=== PATIENT | female | born 1980 | race Caucasian/White ===

== ENCOUNTER → 2017-01-03 | Outpatient (CLI) | payer OTHER ==
[~2017-01-03] MED LIST: ALBUTEROL17 GM INH; NAPROSYN500 MG PO; NUVARING V1 VAG.RING VG; PRILOSEC20 M1 PO; TYLENOL ALLERGY1 TA1 PO
--- NOTE | ~2017-01-03 | NM22 ---
[facility] A Service of [facility] & [facility] RADIOLOGY TEXT RESULTS PATIENT: OLI TORO LOCATION: [facility] : 76 UNIT #: [id number] AGE: [address]: Jeanne Tobias MD SEX: F ORDER DR: [id number] [facility] [address] [place], [place] [address] [id number] O MR#: [id number] Acc #: [id number] NAME: OLI TORO : 1980 SEX: F STUDY DATE/TIME: 01/03/2017 8:41 UNIT: [facility] ROOM: STUDY DESCRIPTION: SD Hepatobiliary W GB Pharm Attending Physician: Jeanne Tobias M.D. Referring Physician: Jeanne Tobias M.D. Ordering Physician: Jeanne Tobias M.D. Primary Care Physician: Jeanne Tobias M.D. MEDICAL IMAGING REPORT This report is preliminary unless electronic signature is present EXAM HIDA scan with Kinevac CCK, 01/03/2017 HISTORY Right upper quadrant pain and right flank pain and right lower back pain for 2 weeks with nausea, abdominal bloating, alternating constipation and diarrhea. FINDINGS The patient received an intravenous injection of 5.14 mCi of technetium 99m tagged Choletec for hepatobiliary imaging. One hour following the injection of the radiopharmaceutical the patient received an intravenous injection of 2.9 mcg of Kinevac. There is homogeneous distribution of the radiotracer throughout the liver. Gallbladder activity was seen by 15 minutes postinjection of the radiopharmaceutical. Following Kinevac injection the gallbladder ejection fraction was 33.1% (normal is greater than 30%). IMPRESSION Normal HIDA scan with gallbladder ejection fraction of 33.1% Dictated by... Antonio Black M.D. THIS IS AN ELECTRONICALLY VERIFIED REPORT Antonio Black M.D. at 01/04/2017 8:20 AM Joey TD: 01/03/2017 14:54 JOB #: [id number] MEDICAL IMAGING REPORT Page 1 of 1 COPY
== END | disposition home or self-care (01) ==
LOC: CNUC 12-30 12:00
DX: R10.11 Right upper quadrant pain (principal); K76.0 Fatty (change of) liver, not elsewhere classified; R11.0 Nausea
CPT/HCPCS: 78227; A9537; J2805